=== PATIENT | female | born 1965 | race Caucasian/White ===

== ENCOUNTER 2019-07-01 13:52 | Observation (INO) ==
[2019-07-01 14:14] VITALS: BMI 29.5
[2019-07-01 14:33] LABS: ABG BASE EXCESS 5.1 mmol/L (-2.0-2.0); ABG HCO3 29.9 mmol/L (22-26)
--- NOTE | 2019-07-01 14:50 | DR.GENAD ---
HPI Time Seen Time Seen by Provider: 07/01/19 14:25 PCP Primary Care Physician: dr cerda Complaint/Symptoms Chief Complaint Doctors Comments: A 54 y/o female presenting with a non- productive cough x > 1 month. She has pleuritic chest pain from coughing. She has no SOB at rest or with activity, fever or chills. She has had 2 positive COVID-19 tests (07/02/2019 and 06/19/2019). Her PCP sent her to be seen in the ED. Chief Complaint:: pt stated she has been tested twice for covid since may and has been short of breath and when she takes a deep breath her chest wall hurts. she stated that dr cerda wanted her to come to the er and to be tested again for the covid. COVID-19 Coronavirus risk:travel/contact w/high risk person: Yes Has patient experienced Coronavirus symptoms: Yes Coronavirus symptoms experienced: Fever, Coughing and Shortness of Breath Nurses notes reviewed Nurses Notes Review: Yes Source History Provided: Patient Mode of Arrival Mode of Arrival: Wheelchair Timing Onset of Chief Complaint: 05/13/19 PMH PMH Past Medical History: Yes Past Medical History: Anxiety Past Surgical History: Yes Surgical History: Appendectomy Family History History of Family Medical Conditions: No Social History Does patient currently use any type of tobacco product: No Have you used tobacco products in the last 12 months: No Type of Tobacco Use: None Does any household member use tobacco: No Alcohol Use: None Do you use any recreational Drugs:: No Lives With: Family Lives Where: Home Travel Risk Coronavirus risk:travel/contact w/high risk person: Yes Has patient experienced Coronavirus symptoms: Yes Coronavirus symptoms experienced: Fever, Coughing and Shortness of Breath Infectious screening In the last 2 months have you had wt loss of >10#?: NO Have you had fever, night sweats or hemotysis?: No Have you traveled outside the country in the last 6 months?: No Isolation: Standard ROS Review of Systems Constitutional: No Symptoms Reported Eyes: No Symptoms Reported ENTM: No Symptoms Reported Respiratoy: Non-Productive Cough and Other (pleuritic chest discomfort) Cardiovascular: No Symptoms Reported Gastrointestinal/Abdominal: No Symptoms Reported Genitourinary: No Symptoms Reported Neurological: No Symptoms Reported Musculoskeletal: No Symptoms Reported Integumentary: No Symptoms Reported Hematologic/Lymphatic: No Symptoms Reported Endocrine: No Symptoms Reported Psychiatric: No Symptoms Reported PE Vital Signs Vitals: Temperature 98.6 F Pulse Rate 79 Respiratory Rate 16 Blood Pressure [Right Arm] 135/69 Blood Pressure [Left Arm] 116/57 Blood Pressure 154/73 O2 Sat by Pulse Oximetry 99 General Limitations: No Limitations General Appearance: Alert and In No Apparent Distress Head Head Exam: Normal Inspection, Atraumatic and Normocephalic Eyes Eye exam: Normal Appearance and EOMI ENT ENT Exam: Normal Exam, Normal Oropharynx, Normal External Ear Exam and Mucous Membranes Moist Neck Neck Exam: Normal Inspection, Full ROM and Trachea Midline Chest Chest Inspection: Normal Inspection Respiratory Respiratory Exam: Normal Lung Sounds Bilat Cardiovascular Cardiovascular Exam: Regular Rate, Normal Rhythm, Normal Heart Sounds, +S1 and +S2 Abdominal Exam Abdominal Exam: Normal Inspection, Normal Bowel Sounds and Soft Extremities Extremities Exam: Normal Inspection and Full ROM Back Back Exam: Normal Inspection and Full ROM Neurologic Neurological Exam: Alert and Oriented X3 Psychiatric Psychiatric Exam: Normal Affect and Normal Mood Skin Skin Exam: Dry and Normal Color COURSE Reevaluation 1st: Unchanged Consultation Consultation Comments: Case was discussed with her referring PCP, he suggested to place her in OBS., status admission. Education/Counseling Education/Counseling: Patient, Education and Counseling Educated On: Treatment, Diagnosis, Prognosis and Needs for Follow Up ROR Labs Reviewed Laboratory Results Reviewed?: Yes Result Diagrams: 07/01/19 14:53 07/01/19 14:53 Laboratory: WBC 8.3 X10^3/uL (3.6-10.0) 07/01/19 14:53 RBC 4.44 X10^6/uL (3.5-5.4) 07/01/19 14:53 Hgb 13.2 g/dL (12.0-16.0) 07/01/19 14:53 Hct 39.5 % (36.0-47.0) 07/01/19 14:53 MCV 88.9 fL (80.0-100.0) 07/01/19 14:53 MCH 29.8 pg (27.0-34.0) 07/01/19 14:53 MCHC 33.5 g/dL (33.0-35.0) 07/01/19 14:53 RDW 12.6 % (11.6-16.5) 07/01/19 14:53 Plt Count 243 X10^3/uL (150.0-450.0) 07/01/19 14:53 MPV 8.2 fL (7.4-11.0) 07/01/19 14:53 Neut % (Auto) 50.0 % (42.0-75.0) 07/01/19 14:53 Lymph % (Auto) 33.4 % (21.0-51.0) 07/01/19 14:53 Gallia % (Auto) 13.8 % (0.0-13.0) H 07/01/19 14:53 Eos % (Auto) 2.2 % (0.9-2.9) 07/01/19 14:53 Baso % (Auto) 0.6 % (0.2-1.0) 07/01/19 14:53 Neut # (Auto) 4.2 x10^3/uL (2.2-4.8) 07/01/19 14:53 Lymph # (Auto) 2.8 X10^3/uL (1.3-2.9) 07/01/19 14:53 Gallia # (Auto) 1.1 x10^3/uL (0.3-0.8) H 07/01/19 14:53 Eos # (Auto) 0.2 x10^3/uL (0.0-0.2) 07/01/19 14:53 Baso # (Auto) 0.1 X10^3/uL (0.0-0.1) 07/01/19 14:53 Absolute Nucleated RBC 0.0 /100WBC 07/01/19 14:53 Sample Site Rbra 07/01/19 14:24 ABG pH 7.440 (7.35-7.45) 07/01/19 14:24 ABG pCO2 44.0 mmHg (35.0-45.0) 07/01/19 14:24 ABG pO2 83.0 mmHg (80.0-100.0) 07/01/19 14:24 ABG HCO3 29.9 mmol/L (22-26) H 07/01/19 14:24 ABG O2 Saturation 97.0 % (90-100) 07/01/19 14:24 ABG Base Excess 5.1 mmol/L (-2.0-2.0) H 07/01/19 14:24 Sahil Test N/a 07/01/19 14:24 A-a Gradient 12.0 mmHg 07/01/19 14:24 FiO2 21.0 07/01/19 14:24 Blood Gas Comments Pt jun well elj cdn 07/01/19 14:24 Sodium 139 mmol/L (136-145) 07/01/19 14:53 Corrected Sodium 141 mmol/L (136-145) 07/01/19 14:53 Potassium 4.2 mmol/L (3.5-5.1) 07/01/19 14:53 Chloride 101 mmol/L (98-107) 07/01/19 14:53 Carbon Dioxide 32.2 mmol/L (21-32) H 07/01/19 14:53 BUN 12 mg/dL (7-18) 07/01/19 14:53 Creatinine 0.93 mg/dL (0.55-1.02) 07/01/19 14:53 Est GFR (MDRD) Af Amer > 60 (>60) 07/01/19 14:53 Est GFR (MDRD) Non-Af > 60 (>60) 07/01/19 14:53 Glucose 173 mg/dL (65-99) H 07/01/19 14:53 Calcium 9.1 mg/dL (8.5-10.1) 07/01/19 14:53 Corrected Calcium TNP 07/01/19 14:53 Total Bilirubin 0.30 mg/dL (0.2-1.0) 07/01/19 14:53 AST 24 Units/L (15-37) 07/01/19 14:53 ALT 55 Units/L (12-78) 07/01/19 14:53 Alkaline Phosphatase 113 Units/L (46-116) 07/01/19 14:53 Total Protein 7.2 g/dL (6.4-8.2) 07/01/19 14:53 Albumin 3.5 g/dL (3.4-5.0) 07/01/19 14:53 Globulin 3.7 g/dL (2.5-4.5) 07/01/19 14:53 Albumin/Globulin Ratio 0.9 Ratio (1.1-2.1) L 07/01/19 14:53 XRAY XRAY Interpreted by: Self X-ray Results: CXR- 1 view: No acute process noted. Radiologist report is pending. Opioid Opioid Risk Tool Age (Bj box if 16-45): No History of Preadolescent Sexual Abuse: No Total: 0 Total Score Risk Category: Low Risk Copyright: Kayden NUNN predicting aberrant behaviors Diagnosis Discharge Problem: URI with cough and congestion, Thrombophlebitis Depression Qualifiers: Depression Type: unspecified Qualified Code(s): F32.9 - Major depressive dis order, single episode, unspecified ADDITIONAL NOTES Additional Notes Additional Notes: HISTORY COUGH, PAIN STUDY CHEST, 1 VIEW COMPARISON None FINDINGS The trachea is midline. The cardiac silhouette is enlarged.. There are lung low lung volumes with an elevated right hemidiaphragm. The lungs are clear without infiltrates. The lungs are clear without focal infiltrate or effusion. The bony thorax is unremarkable. IMPRESSION No acute cardiopulmonary disease. Low lung volumes on the right due to elevated hemidiaphragm but no acute infiltrates are observed. The Electronically signed by: CRISTINA WHITLOCK (July 01, 2019 15:56:09)
[2019-07-01 15:19] LABS: BASOPHILS # (AUTO) 0.1 X10^3/uL (0.0-0.1); BASOPHILS % (AUTO) 0.6 % (0.2-1.0); EOSINOPHILS # (AUTO) 0.2 x10^3/uL (0.0-0.2); EOSINOPHILS % (AUTO) 2.2 % (0.9-2.9); HEMATOCRIT 39.5 % (36.0-47.0); HEMOGLOBIN 13.2 g/dL (12.0-16.0); LYMPHOCYTES # (AUTO) 2.8 X10^3/uL (1.3-2.9); LYMPHOCYTES % (AUTO) 33.4 % (21.0-51.0); MEAN CORPUSCULAR HEMOGLOBIN 29.8 pg (27.0-34.0); MEAN CORPUSCULAR HGB CONC 33.5 g/dL (33.0-35.0); MEAN CORPUSCULAR VOLUME 88.9 fL (80.0-100.0); MEAN PLATELET VOLUME 8.2 fL (7.4-11.0); MONOCYTES # (AUTO) 1.1 x10^3/uL (0.3-0.8); MONOCYTES % (AUTO) 13.8 % (0.0-13.0); NEUTROPHILS # (AUTO) 4.2 x10^3/uL (2.2-4.8); PLATELET COUNT 243 X10^3/uL (150.0-450.0); RED BLOOD COUNT 4.44 X10^6/uL (3.5-5.4); RED CELL DISTRIBUTION WIDTH 12.6 % (11.6-16.5); WHITE BLOOD COUNT 8.3 X10^3/uL (3.6-10.0)
[2019-07-01 15:29] LABS: ALANINE AMINOTRANSFERASE 55 Units/L (12-78); ALBUMIN 3.5 g/dL (3.4-5.0); ALKALINE PHOSPHATASE 113 Units/L (46-116); ASPARTATE AMINO TRANSFERASE 24 Units/L (15-37); BLOOD UREA NITROGEN 12 mg/dL (7-18); CALCIUM 9.1 mg/dL (8.5-10.1); CARBON DIOXIDE 32.2 mmol/L (21-32); CHLORIDE 101 mmol/L (98-107); COR NA(FOR HYPERGLY) 141 mmol/L (136-145); CREATININE 0.93 mg/dL (0.55-1.02); SODIUM 139 mmol/L (136-145); TOTAL PROTEIN 7.2 g/dL (6.4-8.2); eGFR NON BLACK RACES > 60 (>60)
--- NOTE | 2019-07-01 15:57 | RAD ---
HISTORYCOUGH, PAINSTUDYCHEST, 1 VIEWCOMPARISONNoneFINDINGSThe trachea is midline. The cardiac silhouette is enlarged.. There are lung low lung volumes with an elevated right hemidiaphragm. The lungs are clear without infiltrates. The lungs are clear without focal infiltrate or effusion. The bony thorax is unremarkable.IMPRESSIONNo acute cardiopulmonary disease. Low lung volumes on the right due to elevated hemidiaphragm but no acute infiltrates are observed. TheElectronically signed by: CRISTINA WHITLOCK (July 01, 2019 15:56:09)
[2019-07-01] MEDS ORDERED: NS 1000 ML 1,000 ML ONE (16:50)
[2019-07-01] MEDS ORDERED: TYLENOL 325 MG TAB PO ONE ×2 (16:50→17:01)
[2019-07-01] MEDS ORDERED: ZyrTEC TAB 10 MG ONE (17:48)
[2019-07-01] MEDS ORDERED: NS 1000 ML 1,000 ML IV SCH (18:00)
[2019-07-01] MEDS: NS 1000 ML 1,000 ML IV SCH (19:36)
[2019-07-01] MEDS ORDERED: ROBITUSSIN DM PO PRN (19:36)
[2019-07-01] MEDS: PERCOCET TAB 5/325 MG PO PRN (20:48)
[2019-07-02] MEDS: NS 1000 ML 1,000 ML IV SCH (03:27)
[2019-07-02 05:09] LABS: BASOPHILS % (AUTO) 0.4 % (0.2-1.0); EOSINOPHILS # (AUTO) 0.3 x10^3/uL (0.0-0.2); EOSINOPHILS % (AUTO) 2.8 % (0.9-2.9); HEMATOCRIT 37.5 % (36.0-47.0); HEMOGLOBIN 12.8 g/dL (12.0-16.0); LYMPHOCYTES # (AUTO) 3.8 X10^3/uL (1.3-2.9); LYMPHOCYTES % (AUTO) 39.4 % (21.0-51.0); MEAN CORPUSCULAR HEMOGLOBIN 30.3 pg (27.0-34.0); MEAN CORPUSCULAR VOLUME 89.2 fL (80.0-100.0); MEAN PLATELET VOLUME 8.6 fL (7.4-11.0); MONOCYTES # (AUTO) 1.3 x10^3/uL (0.3-0.8); MONOCYTES % (AUTO) 13.6 % (0.0-13.0); NEUTROPHILS # (AUTO) 4.2 x10^3/uL (2.2-4.8); NEUTROPHILS % (AUTO) 43.8 % (42.0-75.0); PLATELET COUNT 238 X10^3/uL (150.0-450.0); RED BLOOD COUNT 4.21 X10^6/uL (3.5-5.4); RED CELL DISTRIBUTION WIDTH 12.9 % (11.6-16.5); WHITE BLOOD COUNT 9.5 X10^3/uL (3.6-10.0)
[2019-07-02 05:37] LABS: ABG ALLEN TEST POS; ABG BASE EXCESS 4.6 mmol/L (-2.0-2.0); ABG HCO3 29.8 mmol/L (22-26)
[2019-07-02 05:38] LABS: ALANINE AMINOTRANSFERASE 49 Units/L (12-78); ALBUMIN 3.1 g/dL (3.4-5.0); ALKALINE PHOSPHATASE 101 Units/L (46-116); ASPARTATE AMINO TRANSFERASE 22 Units/L (15-37); BLOOD UREA NITROGEN 16 mg/dL (7-18); CALCIUM 8.3 mg/dL (8.5-10.1); CARBON DIOXIDE 31.1 mmol/L (21-32); CHLORIDE 102 mmol/L (98-107); CKMB % 1.4 % (<4); COR NA(FOR HYPERGLY) 139 mmol/L (136-145); CREATINE KINASE 71 Units/L (26-192); CREATINE KINASE MB < 1.0 ng/mL (0-4.0); CREATININE 0.95 mg/dL (0.55-1.02); LACTATE DEHYDROGENASE 192 Units/L (81-234); SODIUM 138 mmol/L (136-145); TOTAL PROTEIN 6.6 g/dL (6.4-8.2); TROPONIN I < 0.02 ng/mL (0-1.5); eGFR NON BLACK RACES > 60 (>60)
[2019-07-02] MEDS ORDERED: LASIX PO SCH (09:00)
[2019-07-02] MEDS ORDERED: ZOLOFT PO SCH (09:00)
[2019-07-02] MEDS ORDERED: LOVENOX INJ 40 MG SYR SC SCH (09:00)
[2019-07-02] MEDS: PERCOCET TAB 5/325 MG PO PRN (09:34)
[2019-07-02 11:21] VITALS: BP 124/59
--- NOTE | 2019-07-12 22:38 | DR.CARTERS ---
Short Stay Summary - Admission Date Date of Admission: 07/01/19 - Discharge Date Discharge Date: 07/02/19 - Admission Diagnoses (1) COVID-19 Status: Acute (2) URI with cough and congestion Status: Acute - Hospital Course Hospital Course: IS A 54 YEAR OLD PATIENT OF OURS. SHE PRESENTED TO THE ER WITH COMPLAINTS OF A NON-PRODUCTIVE COUGH, SHORTNESS OF BREATH, AND FEVER ON AND OFF X 1 MONTH. SHE ALSO REPORTED CHEST PAIN FROM COUGHING. SHE REPORTED THAT SHE TESTED POSITIVE FOR COVID-19 TWO TIMES. THE FIRST POSITIVE TEST WAS ON 06/19/19. THE SECOND POSITIVE TEST WAS ON 07/02/19. SHE HAS RECEIVED TREATMENT WITH PLAQUENIL AND AZITHROMYCIN. PMH INCLUDES: DEPRESSION, GERD, AND MIGRAINES. ON ARRIVAL TO THE ER, VITALS WERE 98.6-79-16-99%-154/73. LABS WERE OBTAINED. ABNORMAL LAB VALUES INCLUDE THE FOLLOWING: CARBON DIOXIDE 32.2, GLUCOSE 173. AN ABG WAS OBTAINED AND REVEALED: PH 7.440, PC02 44.0, P02 83.0, HC03 29.9, 02 SATURATION 97.0, BASE EXCESS 5.1, FI02 21.0. COVID-19 POSITIVE. A CHEST XRAY WAS OBTAINED AND REVEALED: No acute cardiopulmonary disease. Low lung volumes on the right due to elevated hemidiaphragm but no acute infiltrates are observed. EKG REVEALED: SINUS RHYTHM WITH HR 65. SHE WAS ADMITTED TO THE HOSPITAL FOR FURTHER EVALUATION AND TREATMENT OF COVID-19 AND UPPER RESPIRATORY INFECTION WITH COUGH AND CONGESTION. SHE WAS STARTED ON NORMAL SALINE AT 125ML/HR, SIX 40MG PO DAILY, LOVENOX 40MG SC DAILY, PERCOCET 5/325MG 1 TAB PO Q6H PRN, ROBITUSSIN 10ML PO QID PRN, FIORCET 1 CAP PO Q6H PRN HEADACHE, PHENERGAN 25MG PO Q8H PRN NAUSEA, RANITIDINE 150MG PO BID, AND ZOLOFT 50MG PO DAILY. WE PLANNED TO FOLLOW UP WITH AM LABS AND CONTINUE TO MONITOR. ON THE MORNING FOLLOWING ADMISSION, PATIENT IS ALERT AND ORIENTED, LYING IN BED ON MORNING ROUNDS. SHE CONTINUES WITH INTERMITTENT COUGH, BUT DENIES SHORTNESS OF BREATH OR FEVER. ON EXAMINATION, HEART IS REGULAR IN RATE AND RHYTHM. BILATERAL LUNGS ARE NOTED WITH DIMINISHED LUNG SOUNDS THROUGHOUT. ABDOMEN IS ROUND, SOFT, AND NON-TENDER WITH NORMAL BOWEL SOUNDS NOTED IN ALL QUADRANTS. HER VITALS THIS MORNING ARE: 97.8-77-28-95%-120/58. LABS WERE OBTAINED. ABNORMAL LAB VALUES INCLUDE THE FOLLOWING: GLUCOSE 123, CALCIUM 8.3, FERRITIN 579, CRP 11.60, ALBUMIN 3.1. AN ABG WAS REPEATED. IT REVEALED: PH 7.420, PC02 46.0, P02 81.0, HC03 29.8, 02 SATURATION 96.0, BASE EXCESS 4.6. PATIENT REQUESTED TO BE DISCHARGED HOME. WE PLANNED FOR DISCHARGE. INSTRUCTIONS FOR MEDICATIONS AND FOLLOW-UP WERE DISCUSSED WITH PATIENT AND FAMILY. THEY VERBALIZED UNDERSTANDING OF ALL ORDERS. NEW PRESCRIPTIONS FOR TESSALON PERLES 200MG PO TID X 5 DAYS, TUSSIONEX 5ML PO Q12H PRN AND PLAQUENIL 200MG PO BID X 5 DAYS GIVEN. SHE WAS INSTRUCTED TO FOLLOW-UP IN THE OFFICE ON 07/09/19 AT 10:15AM. PATIENT WAS DISCHARGED HOME WITH FAMILY IN IMPROVED, STABLE CONDITION. - Discharge Medications Discharge Medications: Home Medication List benzonatate [Tessalon Perles] 200 mg PO TID #30 cap 07/02/19 [Rx] hydrocodone-chlorpheniramine 5 ml PO Q12H PRN #100 ml MDD 10 07/02/19 [Rx] hydroxychloroquine [Plaquenil] 200 mg PO BID #10 tab 07/02/19 [Rx] Prescriptions: benzonatate [Tessalon Perles] Bladimir Chadwick hydrocodone-chlorpheniramine Bladimir Chadwick hydroxychloroquine [Plaquenil] Bladimir Chadwick Risks, benefits, and alternatives of opioids discussed: Yes - Discharge Plan Disposition: 01 HOME, SELF-CARE Condition: Stable Prescriptions: benzonatate [Tessalon Perles] 200 mg PO TID #30 cap hydrocodone-chlorpheniramine 5 ml PO Q12H PRN #100 ml MDD 10 PRN Reason: hydroxychloroquine [Plaquenil] 200 mg PO BID #10 tab - Follow up/Referrals Follow up/Referrals: Jeanette Sepulveda [Nurse Practitioner] - 07/09/19 10:15 am ([facility] - Office to call you.) - Instructions Instructions: Shortness of Breath, Adult, [id number], Hand Washing, [id number], Cough, Adult, [id number], Chest Wall Pain, [id number] Additional Instructions: diet as tolerated. activity as tolerated. quarantine until test is negative Forms: Precautions for COVID19, Patient Portal, Social Distancing
== END 2019-07-02 11:18 | disposition home or self-care (01) ==
LOC: MERGE 13:52 → ICU 13:52 → ER 13:52 → ICU 18:27
PROVIDERS: ADMIT Internal Medicine; ATTEND Internal Medicine
DX: F32.89 Other specified depressive episodes; R07.2 Precordial pain; R50.9 Fever, unspecified; J06.9 Acute upper respiratory infection, unspecified; U07.1 COVID-19; R06.02 Shortness of breath
CPT/HCPCS: 36415; 36600; 71010; 71045; 80053; 82550; 82553; 82728; 82803; 83615; 84484; 85025; 85378; 85610; 85730; 86140; 87635; 93005; 96360; 96361; 96365; 96367; 99284; A4222; G0378; J3490; J7030